=== PATIENT | female | born 1945 | race Caucasian/White ===

== ENCOUNTER → 2019-06-03 | Outpatient (CLI) | payer MEDICARE | LOC: COL.RAD 08:15 | DX: M75.121 Complete rotator cuff tear or rupture of right shoulder, not specified as traumatic (principal); M19.011 Primary osteoarthritis, right shoulder; Q85.00 Neurofibromatosis, unspecified; M50.31 Other cervical disc degeneration, high cervical region ==

== ENCOUNTER 2021-07-05 21:08 | Emergency (ER) | payer MEDICARE ==
[~2021-07-05] VITALS: Ht 162.6 cm; Wt 59.1 kg
[2021-07-05 21:20] VITALS: TEMP 97.5
[2021-07-05 22:30] VITALS: BP 136/79; PULSE 70
== END 2021-07-05 22:30 | disposition home or self-care (01) ==
LOC: COL.ER 21:08
DX: S09.90XA Unspecified injury of head, initial encounter (principal); S00.83XA Contusion of other part of head, initial encounter; S80.212A Abrasion, left knee, initial encounter; V89.2XXA Person injured in unspecified motor-vehicle accident, traffic, initial encounter

== ENCOUNTER 2022-08-15 06:19 | Day surgery (SDC) | payer MEDICARE ==
[~2022-08-15] VITALS: Ht 162.6 cm; Wt 58.0 kg
[2022-08-15] MEDS ORDERED: MULTIPLE VITAMI1 TA5 PO (06:42)
[2022-08-15] MEDS ORDERED: ATARAX 10MG10 MG/TAB PO (06:43)
[2022-08-15] MEDS ORDERED: PRIL40 PO (06:43)
[2022-08-15] MEDS ORDERED: ZOLOFT 50MG50 MG PO (06:44)
[2022-08-15] MEDS ORDERED: CRESTOR40 MG PO (06:44)
[2022-08-15] MEDS ORDERED: INFANTS AQU400 IU/ML PO (06:46)
[2022-08-15] MEDS ORDERED: CALCIUM 600MG+D1 TAB (06:47)
[2022-08-15 08:10] VITALS: BP 117/63; PULSE 68; TEMP 97.9
--- NOTE | 2022-08-15 08:10 | NUR ---
PATIENT ARRIVES TO ROOM 2 VIA CART. ASSIST X 1 TO CHAIR. SHE REQUESTS COFFEE AND A MUFFIN. DENIES ANY PAIN OR NAUSEA. WAITING FOR DOCTOR TO SPEAK WITH PATIENT. VS STABLE. WILL CONTINUE TO MONITOR.
[2022-08-15 08:25] VITALS: BP 119/75; PULSE 68
--- NOTE | 2022-08-15 08:30 | NUR ---
PATIENT IS ALERT AND ORIENTED. VITAL SIGNS ARE STABLE. IV DISCONTINUED. DOCTOR AT BEDSIDE. PATIENT DENIES ANY NAUSEA AFTER EATING. WILL CONTINUE TO MONITOR.
[2022-08-15 08:40] VITALS: BP 126/64; PULSE 66
--- NOTE | 2022-08-15 08:40 | NUR ---
PATIENT IS READY FOR DISCHARGE. DISCHARGE INSTRUCTIONS REVIEWED. LAST SET OF VITALS ARE NORMAL. WILL DISCHARGE WHEN SHE IS DRESSED.
[2022-08-15 14:17] VITALS: BP 123/76; PULSE 92; TEMP 96.3
[2022-08-15 16:10] VITALS: BP 121/85; PULSE 67
== END 2022-08-15 08:45 | disposition home or self-care (01) ==
LOC: SDCO 06:19
DX: K22.2 Esophageal obstruction (principal); K21.00 Gastro-esophageal reflux disease with esophagitis, without bleeding; K44.9 Diaphragmatic hernia without obstruction or gangrene
CPT/HCPCS: C1726; J2704; J7030

== ENCOUNTER 2023-04-21 05:32 | Day surgery (SDC) | payer MEDICARE ==
[~2023-04-21] VITALS: Ht 162.6 cm; Wt 59.2 kg
[~2023-04-21 05:32] MED LIST: ATARAX 10MG10 MG/TAB PO; CALCIUM 600MG+D1 TAB; CRESTOR40 MG PO; INFANTS AQU400 IU/ML PO; MULTIPLE VITAMI1 TA5 PO; PRIL40 PO; ZOLOFT 50MG50 MG PO
[2023-04-21] MEDS ORDERED: MASON NATURAL2000 IU PO (06:11)
[2023-04-21 07:40] VITALS: BP 123/62; PULSE 59; TEMP 97.4
[2023-04-21 08:11] VITALS: BP 116/56; PULSE 74; TEMP 97.3
[2023-04-21] MEDS ORDERED: MOTRIN 600600 MG/TAB PO (08:17)
[2023-04-21 08:26] VITALS: BP 110/65; PULSE 74
[2023-04-21 08:41] VITALS: BP 127/65; PULSE 72
[2023-04-21 08:56] VITALS: BP 136/71; PULSE 64
--- NOTE | 2023-04-21 09:10 | NUR ---
0811 RETURNS TO ROOM 2 PER CART. DROWSY, AROUSES EASILY TO VERBAL STIMULI. RESP UNLABORED. HOB ELEVATED 30 DEGREES. VITAL SIGNS OBTAINED. INCISION LEFT POSTERIOR SHOULDER INTACT. NO REDNESS OR DRAINAGE OBSERVED. DENIES DISCOMFORT. SIDE RAILS UP. CALL LIGHT AT SIDE. 0825 AWAKE, ALERT. HOB ELEVATED 60 DEGREES. TOLERATES PO WATER WITHOUT NAUSEA. 0840 DOZES AT INTERVALS. DENIES PAIN. INCISION UNCHANGED. 0855 AWAKE, ALERT. DISCHARGE INSTRUCTIONS REVIEWED. PATIENT VERBALIZES UNDERSTANDING. COPY PROVIDED IN DISCHARGE FOLDER. 0903 SITS ON EDGE OF BED. DRESSES SELF. UPPER AND LOWER DENTURES IN MOUTH, GLASSES ON
== END 2023-04-21 09:10 | disposition home or self-care (01) ==
LOC: SDCO 05:32
DX: D17.22 Benign lipomatous neoplasm of skin and subcutaneous tissue of left arm (principal); K21.9 Gastro-esophageal reflux disease without esophagitis
CPT/HCPCS: J0330; J0690; J1100; J2405; J2704; J3010; J7120

== ENCOUNTER 2023-07-29 15:49 | Outpatient (RCR) | payer MEDICARE ==
[~2023-07-29 15:49] MED LIST changes: +MASON NATURAL2000 IU PO; +MOTRIN 600600 MG/TAB PO
== END 2023-08-22 | disposition home or self-care (01) ==
LOC: MKS.ESL.OT
DX: G56.02 Carpal tunnel syndrome, left upper limb (principal)